=== PATIENT | female | born 1980 | race Caucasian/White ===

== ENCOUNTER 2016-12-19 21:58 | Emergency (ER) | payer SELFPAY ==
[~2016-12-19] VITALS: Ht 157.5 cm; Wt 88.0 kg
[2016-12-19 22:00] VITALS: BP 172/115; PULSE 79; RESP 15; TEMP 99; O2SAT 100
[2016-12-19] MEDS ORDERED: DICL75TA PO (22:43)
[2016-12-19] MEDS ORDERED: CLIN150 PO (22:43)
[2016-12-19] MEDS ORDERED: ACETAMINOPHEN/HYDROcodone 325 MG/5 MG TAB PO ONE (22:45)
[2016-12-19] MEDS ORDERED: CLINDAMYCIN 150 MG CAP PO ONE (22:45)
--- NOTE | 2016-12-19 22:48 | PD ---
HPI Chief Complaint: Oral / Dental Pain or Problem Time Seen by Provider: 22:45 Travel History International Travel<30 days: No Contact w/Intl Traveler<30days: No Traveled to known affect area: No History of Present Illness HPI 36-year-old white female presents to emergency department with complaints of dental pain. She's had pain in her right upper tooth #8 for last 2 days. She' s had history of very poor dentition. She states the pain is a 9/10. Constant. Worse with chewing. No alleviating factors. No fever chills. PFSH Past Medical History Narrative Medical Hypertension, valvular heart disease Cardiovascular Problems: Yes (HTN, HEART VALVE DIFFICIENCY) Tetanus Vaccination: < 5 Years ?: Not LMP: 11/30/16 Past Surgical History Surgical History: No Previous Surgery Social History Alcohol Use: No Tobacco Use: Yes Allergies-Medications (Allergen,Severity, Reaction): Coded Allergies: Penicillin (Verified Allergy, Severe, Anaphylaxis, 12/19/16) Zithromax (Verified Allergy, Severe, Anaphylaxis, 12/19/16) Reported Meds & Prescriptions Reported Meds & Active Scripts Active Diclofenac Sodium DR (Diclofenac Sodium) 75 Mg Tabdr 75 Mg PO BID Cleocin (Clindamycin HCl) 150 Mg Cap 300 Mg PO Q6H Review of Systems Except as stated in HPI: all other systems reviewed are Neg Physical Exam Narrative GENERAL: Well-developed, well-nourished in no acute distress. Nontoxic appearing. HEAD: Normocephalic, atraumatic. EYES: Pupils equal round and reactive. Extraocular motions intact. No scleral icterus. No injection or drainage. ENT: TMs clear without erythema. The external auditory canals clear. Nose: clear . Posterior pharynx is pink and moist. No tonsillar edema or exudate. Uvula midline. Airway patent. The patient has severe periodontal disease with multiple, multiple teeth decayed to the gumline. She points to her right upper maxilla as a source of her pain. Tooth #8 has a large area of erythema and edema associated with it. Positive pain with percussion. Mild swelling. NECK: Trachea midline.Supple, nontender, moves head freely. No central bony tenderness or spasm. CARDIOVASCULAR: Regular rate and rhythm without murmurs, gallops, or rubs. RESPIRATORY: Clear to auscultation. Breath sounds equal bilaterally. No wheezes , rales, or rhonchi. GASTROINTESTINAL: Abdomen soft, non-tender, nondistended. No hepato-splenomegaly , or palpable masses. No guarding. EXTREMITIES: No clubbing, cyanosis, or edema. No joint tenderness, effusion, or edema noted. BACK: Nontender without deformity or crepitance. No flank tenderness. Data Data Last Documented VS Vital Signs Date Time Temp Pulse Resp B/P Pulse Ox O2 Delivery O2 Flow Rate FiO2 12/19/16 22:00 99.0 79 15 172/115 100 Room Air Orders Clindamycin (Cleocin) (12/19/16 22:45) Acetamin-Hydrocod 325-5 Mg (Jackson 5-325 (12/19/16 22:45) MDM Medical Decision Making Medical Screen Exam Complete: Yes Emergency Medical Condition: Yes Medical Record Reviewed: Yes Differential Diagnosis MDM: Moderate Differential diagnoses: Dental abscess, dental caries, osteitis, cellulitis Narrative Course This is dental abscess, dentalgia Patient is given clindamycin 300 mg by mouth, Lortab 5. Diagnosis Primary Impression: Dental abscess Additional Impression: Dentalgia Patient Instructions: Narcotic given in the ED, General Instructions Additional Instructions: Rest. Saltwater gargles. [place] oil on cotton balls. Clindamycin and diclofenac. follow-up with a dentist as soon as possible. And return to the ER if any problems. Med/Other Pt SpecificInfo: Prescription(s) given Scripts Diclofenac Sodium DR 75 Mg Tabdr75 Mg PO BID #20 TAB Prov:Maddie Mcintyre DO 12/19/16 Clindamycin (Cleocin)150 Mg Dyw608 Mg PO Q6H #80 CAP Prov:Maddie Mcintyre DO 12/19/16 Disposition: 01 DISCHARGE HOME Condition: Stable Serge Erickson December 19, 2016 22:48
== END 2016-12-19 23:31 | disposition home or self-care (01) ==
LOC: NEPD 21:58
DX: K04.7 Periapical abscess without sinus (principal); Z72.0 Tobacco use
CPT/HCPCS: 99282